=== PATIENT | female | born 1955 | race Caucasian/White ===

== ENCOUNTER 2018-06-29 14:19 | Observation (INO) ==
[2018-06-29] MEDS ORDERED: Morphine Inj 4 MG/ML Vial IV.PUSH ONE ×2 (14:30→15:54)
--- NOTE | 2018-06-29 14:36 | ED ---
HPI General Chief complaint: Fall Stated complaint: Fell off Horse Complaint Time Seen by Provider: 06/29/18 14:29 History of Present Illness HPI narrative: She endorses some nausea.62-year-old female who presents via EMS for evaluation after falling off a horse. She reports that prior to arrival she was riding her horse when the horse became spooked and she fell off , landing on her back and then hitting her head. She was helmeted at the time. There was reportedly a loss of consciousness while she was being transported which she feels is secondary to pain. She is complaining primarily right now of right lower back and buttocks pain, severe, constant, aggravated by movement of the hip. She received fentanyl via EMS. She is currently denying any headache, neck pain, chest pain or shortness of breath, abdominal pain, numbness or tingling or weakness in extremities. She reports baby aspirin use every other day. She is not on any other blood thinning medications. She has no other complaints at this time Related Data Home Medications Medication Instructions Recorded Confirmed aspirin [Aspirin Low Dose] 81 mg PO DAILY 06/29/18 06/29/18 Allergies Allergy/AdvReac Type Severity Reaction Status Date / Time latex Allergy Rash Verified 06/29/18 14:32 Sulfa (Sulfonamide Allergy allergy Verified 06/29/18 14:32 Antibiotics) Review of Systems ROS: all other systems reviewed are negative [facility] Medical History Medical History GERD (gastroesophageal reflux disease) (Acute) H/O: hysterectomy (Acute) Surgical History Surgical History Hx of tonsillectomy (Acute) Social History Social History Substance History: No History of Abuse Second Hand Smoke Exposure: No Smoking Status: Never smoker How Often Do You Have a Drink Containing Alcohol: 2 to 4 times a month Recent Travel in [facility] within the Last 8 Weeks: No Recent Out of Country Travel within the Last 8 Weeks: No Exam Narrative Exam Narrative: GENERAL: Well-developed well-nourished female who appears uncomfortable on initial examination. Her vital signs been reviewed. Cervical collar in place laying on backboard. The patient was logrolled off of the backboard using spinal precautions. SKIN: Warm and dry. Large amount of ecchymosis noted to the right lower back and buttocks region with associated tenderness to palpation. HEAD: Atraumatic. Normocephalic. EYES: Pupils equal and round. No scleral icterus. No injection or drainage. ENT: No nasal bleeding or discharge. Mucous membranes pink and moist. NECK: Trachea midline. No JVD. CARDIOVASCULAR: Regular rate and rhythm. No murmur appreciated. RESPIRATORY: No accessory muscle use. Clear to auscultation. Breath sounds equal bilaterally. GASTROINTESTINAL: Abdomen soft, non-tender, nondistended. Hepatic and splenic margins not palpable. MUSCULOSKELETAL: Patient is holding her right leg in flexion and internal rotation of the right hip region. There is pain with attempts of range of motion. There is tenderness to palpation to the right buttocks, lower back and lateral hip region. There is no crepitus. There is no tenderness to palpation along the cervical thoracic or lumbar midline spine. Distal pulses and sensation are preserved in the upper and lower extremities. NEUROLOGICAL: Awake and alert. No obvious cranial nerve deficits. Motor grossly within normal limits. Normal speech. Course Initial Documented Vital Signs Temperature 98.1 F 06/29/18 14:24 Pulse Rate 87 06/29/18 14:24 Respiratory Rate 20 06/29/18 14:24 Blood Pressure 155/65 H 06/29/18 14:24 Pulse Oximetry 100 06/29/18 14:24 Last Documented Vital Signs Temperature 98.1 F 06/29/18 14:24 Pulse Rate 52 L 06/29/18 15:39 Respiratory Rate 20 06/29/18 14:24 Blood Pressure 149/63 H 06/29/18 15:39 Pulse Oximetry 99 06/29/18 15:39 Medical Decision Making MDM Narrative Medical decision making narrative: The patient was placed on ECG monitoring pulse oximetry. IV morphine, Zofran administered. Lab work obtained. Plan is for CT imaging the brain, cervical, thoracic and lumbar, lumbar spine, thorax, abdomen and pelvis, chest x-ray and pelvis x-ray ordered. CT imaging reveals a large right-sided superficial gluteal/lumbar hematoma. Imaging is otherwise negative for acute process. The cervical collar was removed. Attempted to have the patient sit up in bed on the edge of the bed however she is unable to even do this, certainly unable to ambulate at this time. Therefore the patient will be admitted to the trauma service for intractable pain Medical Screen Exam Complete: Yes Emergency Medical Condition: Yes Differential Diagnosis Differential Diagnosis: Pelvic fracture, contusion, retroperitoneal hematoma, spinal fracture Lab Data Result diagrams: 06/29/18 14:33 06/29/18 14:33 Lab Results 06/29/18 06/29/18 06/29/18 Range/Units 14:33 14:33 14:33 WBC 17.0 H (4.0-11.0) th/mm3 RBC 4.23 (4.00-5.30) mil/mm3 Hgb 13.6 (11.6-15.3) gm/dL POC Hgb (Calc) 13.9 (11.6-15.3) g/dL Hct 38.6 (35.0-46.0) % POC Hct 41.0 (35-46.0) % MCV 91.3 (80.0-100.0) fL MCH 32.1 (27.0-34.0) pg MCHC 35.2 (32.0-36.0) % RDW 12.5 (11.6-17.2) % Plt Count 235 (150-450) th/mm3 MPV 8.7 (7.0-11.0) fL Neut % (Auto) 83.2 H (16.0-70.0) % Lymph % (Auto) 11.2 (9.0-44.0) % [place] % (Auto) 5.3 (0.0-8.0) % Eos % (Auto) 0.1 (0.0-4.0) % Baso % (Auto) 0.2 (0.0-2.0) % Neut # (Auto) 14.2 H (1.8-7.7) th/mm3 Lymph # (Auto) 1.9 (1.0-4.8) th/mm3 [place] # (Auto) 0.9 (0.0-0.9) th/mm3 Eos # (Auto) 0.0 (0.0-0.4) th/mm3 Baso # (Auto) 0.0 (0.0-0.2) th/mm3 WBC Differential . Differential Comment Auto diff final PT 10.5 (9.8-11.6) sec INR 1.0 Ratio APTT 22.2 L (23.4-31.7) sec POC Sodium 140 (137-144) mmol/L Sodium (136-145) meq/L POC Potassium 4.0 (3.6-5.0) mmol/L Potassium (3.5-5.1) meq/L POC Chloride 101 L (102-111) mmol/L Chloride (98-107) meq/L Carbon Dioxide (21.0-32.0) meq/L Anion Gap (5-15) meq/L POC BUN 28 H (5-21) mg/dL BUN (7-18) mg/dL Creatinine (0.50-1.00) mg/dL POC Creatinine 0.7 (0.6-1.3) mg/dL Estimated GFR (>89) mL/min POC Glucose 135 H (68-110) mg/dL Random Glucose (74-106) mg/dL Calcium (8.5-10.1) mg/dL Total Bilirubin (0.2-1.0) mg/dL AST (15-37) U/L ALT (10-53) U/L Alkaline Phosphatase (45-117) U/L Total Protein (6.4-8.2) g/dL Albumin (3.4-5.0) g/dL Blood Type Blood Type Recheck Antibody Screen 06/29/18 06/29/18 Range/Units 14:33 14:33 WBC (4.0-11.0) th/mm3 RBC (4.00-5.30) mil/mm3 Hgb (11.6-15.3) gm/dL POC Hgb (Calc) (11.6-15.3) g/dL Hct (35.0-46.0) % POC Hct (35-46.0) % MCV (80.0-100.0) fL MCH (27.0-34.0) pg MCHC (32.0-36.0) % RDW (11.6-17.2) % Plt Count (150-450) th/mm3 MPV (7.0-11.0) fL Neut % (Auto) (16.0-70.0) % Lymph % (Auto) (9.0-44.0) % [place] % (Auto) (0.0-8.0) % Eos % (Auto) (0.0-4.0) % Baso % (Auto) (0.0-2.0) % Neut # (Auto) (1.8-7.7) th/mm3 Lymph # (Auto) (1.0-4.8) th/mm3 [place] # (Auto) (0.0-0.9) th/mm3 Eos # (Auto) (0.0-0.4) th/mm3 Baso # (Auto) (0.0-0.2) th/mm3 WBC Differential Differential Comment PT (9.8-11.6) sec INR Ratio APTT (23.4-31.7) sec POC Sodium (137-144) mmol/L Sodium 140 (136-145) meq/L POC Potassium (3.6-5.0) mmol/L Potassium 4.0 (3.5-5.1) meq/L POC Chloride (102-111) mmol/L Chloride 106 (98-107) meq/L Carbon Dioxide 22.9 (21.0-32.0) meq/L Anion Gap 11 (5-15) meq/L POC BUN (5-21) mg/dL BUN 29 H (7-18) mg/dL Creatinine 0.87 (0.50-1.00) mg/dL POC Creatinine (0.6-1.3) mg/dL Estimated GFR 66 L (>89) mL/min POC Glucose (68-110) mg/dL Random Glucose 133 H (74-106) mg/dL Calcium 9.5 (8.5-10.1) mg/dL Total Bilirubin 0.4 (0.2-1.0) mg/dL AST 28 (15-37) U/L ALT 37 (10-53) U/L Alkaline Phosphatase 78 (45-117) U/L Total Protein 7.2 (6.4-8.2) g/dL Albumin 4.1 (3.4-5.0) g/dL Blood Type A Negative Blood Type Recheck Required Antibody Screen Negative Imaging Data Radiologist's impression: Abdomen/Pelvis CT 06/29/18 14:29 CONCLUSION: 1. Large superficial right gluteal/lumbar hematoma. 2. Trace free fluid in the dependent portion of the pelvis. 3. No other acute findings identified in the abdomen and pelvis. Chest X-Ray 06/29/18 14:29 CONCLUSION: Faint ill-defined opacity right upper lung zone. May be artifactual. Recommend follow-up PA and lateral views for further evaluation. No other acute cardiopulmonary disease identified. Pelvis X-Ray 06/29/18 14:29 CONCLUSION: No evidence of fracture. Cervical Spine CT 06/29/18 14:30 CONCLUSION: 1. No evidence of fracture. 2. Multilevel degenerative findings. Chest CT 06/29/18 14:30 CONCLUSION: No acute findings in the chest. Head CT 06/29/18 14:30 CONCLUSION: No acute intracranial findings. . Lumbar Spine CT 06/29/18 14:30 CONCLUSION: 1. Degenerative findings of lumbar spine. 2. No evidence of fracture. 3. Right-sided superficial lumbar/gluteal hematoma described on CT abdomen and pelvis report. Thoracic Spine CT 06/29/18 14:30 CONCLUSION: 1. No evidence fracture. 2. Central canal diameter within normal limits at all levels. Discharge Plan Discharge Disposition Patient Disposition: 30 Still Patient Discharge Condition Condition: Stable Discharge Details Diagnosis: Traumatic hematoma, Intractable back pain Physicians Team ED Provider: Alvin Crawford ED Midlevel Provider: Sony Sheffield Primary Care Provider: David Adorno Rxs /Orders / Referrals /Forms Prescriptions: No Action aspirin [Aspirin Low Dose] 81 mg Tablet,Delayed Release (Dr/Ec) 81 mg PO DAILY RF: 0 Discharge Interventions Interventions: Vital Signs Last Done: 06/29/18 15:39 Status ED Status: With Doctor
[2018-06-29 14:45] LABS: Baso % (Auto) 0.2 % (0.0-2.0); Eos % (Auto) 0.1 % (0.0-4.0); Hematocrit 38.6 % (35.0-46.0); Hemoglobin 13.6 gm/dL (11.6-15.3); Lymph # (Auto) 1.9 th/mm3 (1.0-4.8); Lymph % (Auto) 11.2 % (9.0-44.0); Mean Corpuscular HGB Conc 35.2 % (32.0-36.0); Mean Corpuscular Hemoglobin 32.1 pg (27.0-34.0); Mean Corpuscular Volume 91.3 fL (80.0-100.0); Mean Platelet Volume 8.7 fL (7.0-11.0); Mono # (Auto) 0.9 th/mm3 (0.0-0.9); Mono % (Auto) 5.3 % (0.0-8.0); Neut # (Auto) 14.2 th/mm3 (1.8-7.7); Neut % (Auto) 83.2 % (16.0-70.0); Platelet Count 235 th/mm3 (150-450); Red Blood Count 4.23 mil/mm3 (4.00-5.30); Red Cell Distribution Width 12.5 % (11.6-17.2)
[2018-06-29 14:56] LABS: Activated Partial Thrombo Time 22.2 sec (23.4-31.7); Prothrombin Time 10.5 sec (9.8-11.6)
[2018-06-29 15:02] LABS: Alanine Aminotransferase 37 U/L (10-53); Albumin 4.1 g/dL (3.4-5.0); Anion Gap 11 meq/L (5-15); Aspartate Aminotransferase 28 U/L (15-37); Blood Urea Nitrogen 29 mg/dL (7-18); Calcium 9.5 mg/dL (8.5-10.1); Carbon Dioxide 22.9 meq/L (21.0-32.0); Chloride 106 meq/L (98-107); Glomerular Filtration Rate 66 mL/min (>89); Glucose,Random 133 mg/dL (74-106); Sodium 140 meq/L (136-145)
[2018-06-29 15:04] LABS: Alkaline Phosphatase 78 U/L (45-117); Total Protein 7.2 g/dL (6.4-8.2)
--- NOTE | 2018-06-29 15:05 | XR ---
EXAM DATE: 06/29/2018 2:56 PM EDT AGE/SEX: 62 years / Female INDICATIONS: Patient fell off of horse today. CLINICAL DATA: This is the patient's initial encounter. Patient reports that signs and symptoms have been present for 1 day and indicates a pain score of 7/10. MEDICAL/SURGICAL HISTORY: None. None. COMPARISON: No prior exams available for comparison. FINDINGS: Single AP view of the chest. There is pain ill-defined opacity in the right upper lung zone. Lungs ot herwise clear. No evidence of pleural effusion or thorax. Cardiomediastinal silhouette within normal limits. CONCLUSION: Faint ill-defined opacity right upper lung zone. May be artifactual. Recommend follow-up PA and later al views for further evaluation. No other acute cardiopulmonary disease identified. Electronically signed by: Dheeraj Doe MD 06/29/2018 3:04 PM EDT
--- NOTE | 2018-06-29 15:06 | XR ---
EXAM DATE: 06/29/2018 2:56 PM EDT AGE/SEX: 62 years / Female INDICATIONS: Pelvic and right hip pain, patient fell off of horse today. CLINICAL DATA: This is the patient's initial encounter. Patient reports that signs and symptoms have been present for 1 day and indicates a pain score of 10/10. MEDICAL/SURGICAL HISTORY: None. None. COMPARISON: No prior exams available for comparison. FINDINGS: 2 views of the pelvis. Bone alignment within normal limits. No evidence of fracture. No evidence of j oint narrowing. CONCLUSION: No evidence of fracture. Electronically signed by: Dheeraj Doe MD 06/29/2018 3:05 PM EDT
--- NOTE | 2018-06-29 15:24 | CT ---
EXAM DATE: 06/29/2018 3:07 PM EDT AGE/SEX: 62 years / Female INDICATIONS: Fell off of horse. Pain. CLINICAL DATA: This is the patient's initial encounter. Patient reports that signs and symptoms have been present for 1 day and indicates a pain score of 8/10. MEDICAL/SURGICAL HISTORY: Gastroesophageal reflux disease. Hysterectomy. Tonsillectomy. RADIATION DOSE: 53.20 CTDI (mGy) COMPARISON: . TECHNIQUE: CT of the head without contrast. Using automated exposure control and adjustment of the mA and/or kV according to patient size, radiation dose was kept as low as reasonably achievable to ob tain optimal diagnostic quality images. DICOM format image data is available electronically for revi ew and comparison. FINDINGS: Cerebrum: The ventricles are normal for age. No evidence of midline shift, mass lesion, hemorrhage or acute infarction. No extraaxial fluid collections are seen. Posterior Fossa: The cerebellum and brainstem are intact. The 4th ventricle is midline. The cerebe llopontine angle is unremarkable. Extracranial: The visualized portion of the orbits is intact. Skull: The calvaria is intact. No evidence of skull fracture. CONCLUSION: No acute intracranial findings. . Electronically signed by: Dheeraj Doe MD 06/29/2018 3:22 PM EDT
--- NOTE | 2018-06-29 15:29 | CT ---
EXAM DATE: 06/29/2018 3:22 PM EDT AGE/SEX: 62 years / Female INDICATIONS: Fell off of horse. Right flank hematoma. CLINICAL DATA: This is the patient's initial encounter. Patient reports that signs and symptoms have been present for 1 day and indicates a pain score of 10/10. MEDICAL/SURGICAL HISTORY: Gastroesophageal reflux disease. Hysterectomy. Tonsillectomy. ORAL CONTRAST: No oral contrast ingested. RADIATION DOSE: 9.18 CTDI (mGy) ; Combined studies COMPARISON: No prior exams available for comparison. TECHNIQUE: Multiple contiguous axial images were obtained through the abdomen and pelvis following b olus infusion of 95 ml Omnipaque 350 (iohexol) nonionic water-soluble contrast as a cumulative dose for multiple exams. No oral contrast ingested. Using automated exposure control and adjustment of t he mA and/or kV according to patient size, radiation dose was kept as low as reasonably achievable to obtain optimal diagnostic quality images. DICOM format image data is available electronically for r eview and comparison. FINDINGS: Lower Lungs: The visualized lower lungs are clear. Liver: The liver has a homogeneous density without space-occupying lesion. There is no dilation of th e biliary tree. Spleen: Homogeneous density without enlargement. Pancreas: Unremarkable without mass or calcification. Kidneys: Normal in size and shape. No evidence of mass or hydronephrosis. Adrenal Glands: Unremarkable. Aorta: The aorta and proximal iliac vessels are grossly unremarkable without aneurysmal dilation. Bowel/Mesentery: No evidence of bowel dilatation. No focal bowel wall thickening identified. There i s trace free fluid in the pelvis. No free air identified. Abdominal Wall: Anterior abdominal wall is intact. There is a large right sided subcutaneous soft ti ssue gluteal/lumbar hematoma measuring 13.9 x 4.4 cm in axial dimensions. Adjacent soft tissue edema. Retroperitoneum: No evidence of adenopathy in the retrocrural, para-aortic, or deep pelvic regions. Bladder: Contours are smooth. Reproductive Organs: No abnormal masses or calcifications seen. Inguinal: The inguinal region is unremarkable without evidence of adenopathy. Bony Structures: No evidence of fracture. CONCLUSION: 1. Large superficial right gluteal/lumbar hematoma. 2. Trace free fluid in the dependent portion of the pelvis. 3. No other acute findings identified in the abdomen and pelvis. Electronically signed by: Dheeraj Doe MD 06/29/2018 3:27 PM EDT
--- NOTE | 2018-06-29 15:32 | CT ---
EXAM DATE: 06/29/2018 3:18 PM EDT AGE/SEX: 62 years / Female INDICATIONS: Fell off of horse. Pain. CLINICAL DATA: This is the patient's initial encounter. Patient reports that signs and symptoms have been present for 1 day and indicates a pain score of 10/10. MEDICAL/SURGICAL HISTORY: Gastroesophageal reflux disease. Hysterectomy. Tonsillectomy. RADIATION DOSE: 15.44 CTDI (mGy) COMPARISON: No prior exams available for comparison. TECHNIQUE: Contiguous axial images were obtained using helical multirow detector technique. The vol umetric data was post-processed with multiplanar reconstruction in oblique axial, sagittal, and coron al planes. Using automated exposure control and adjustment of the mA and/or kV according to patient s ize, radiation dose was kept as low as reasonably achievable to obtain optimal diagnostic quality paula ges. DICOM format image data is available electronically for review and comparison. FINDINGS: Vertebrae: Normal vertebral body height. No evidence of fracture. Alignment: Normal. No subluxation. C2-3: Broad-based disc osteophyte complex and bilateral facet arthrosis. Central canal diameter with in normal limits. Neural foraminal diameters within normal limits. C3-4: Bilateral facet arthrosis. Central canal diameter within normal limits. Neural foraminal diame ters within normal limits. C4-5: Right greater than left facet arthrosis and broad-based disc osteophyte complex. Central canal diameter within normal limits. Neural foraminal diameters within normal limits. C5-6: Broad-based disc osteophyte complex and bilateral facet arthrosis. Mild right neural foraminal narrowing. Central canal diameter within normal limits. C6-7: Bilateral facet arthrosis. Central canal diameter within normal limits. Neural foraminal diame ters within normal limits. C7-T1: Bilateral facet arthrosis. Central canal diameter within normal limits. Neural foraminal diam eters within normal limits. CONCLUSION: 1. No evidence of fracture. 2. Multilevel degenerative findings. Electronically signed by: Dheeraj Doe MD 06/29/2018 3:30 PM EDT
--- NOTE | 2018-06-29 15:45 | CT ---
EXAM DATE: 06/29/2018 3:24 PM EDT AGE/SEX: 62 years / Female INDICATIONS: Fell off of horse. Right flank hematoma. CLINICAL DATA: This is the patient's initial encounter. Patient reports that signs and symptoms have been present for 1 day and indicates a pain score of 10/10. MEDICAL/SURGICAL HISTORY: Gastroesophageal reflux disease. Hysterectomy. Tonsillectomy. RADIATION DOSE: 9.18 CTDI (mGy) COMPARISON: No prior exams available for comparison. TECHNIQUE: Multiple contiguous axial images were obtained through the chest during bolus infusion of 95 ml Omnipaque 350 (iohexol) nonionic water-soluble contrast as a cumulative dose for multiple exa ms. Images were obtained in suspended respiration using multiple row detector helical technique. U sing automated exposure control and adjustment of the mA and/or kV according to patient size, radiati on dose was kept as low as reasonably achievable to obtain optimal diagnostic quality images. DICOM format image data is available electronically for review and comparison. FINDINGS: Lungs: The lungs are symmetrically aerated. No infiltrates or nodular densities are seen. Mediastinum: There is good visualization of the great vessels of the middle mediastinum. No evidenc e of mediastinal or hilar adenopathy/mass. Pleurae: No evidence of focal thickening or pleural effusion. Axillae: Unremarkable. Bony Structures: Unremarkable. Miscellaneous: Abdomen described on abdomen CT report. CONCLUSION: No acute findings in the chest. Electronically signed by: Dheeraj Doe MD 06/29/2018 3:44 PM EDT
--- NOTE | 2018-06-29 15:48 | CT ---
EXAM DATE: 06/29/2018 3:40 PM EDT AGE/SEX: 62 years / Female INDICATIONS: Fell off of horse. Right flank hematoma. CLINICAL DATA: This is the patient's initial encounter. Patient reports that signs and symptoms have been present for 1 day and indicates a pain score of 10/10. MEDICAL/SURGICAL HISTORY: Gastroesophageal reflux disease. Hysterectomy. Tonsillectomy. RADIATION DOSE: . CTDI (mGy) ; Reconstructed from previous dataset, no dose COMPARISON: No prior exams available for comparison. TECHNIQUE: Contiguous axial images were acquired with a multirow detector CT scanner after intraveno us administration of 95 ml Omnipaque 350 (iohexol) nonionic water-soluble contrast as a cumulative d ose for multiple exams. Multiplanar reconstructions in the sagittal and coronal plane were also perf ormed. Using automated exposure control and adjustment of the mA and/or kV according to patient size, radiation dose was kept as low as reasonably achievable to obtain optimal diagnostic quality images. DICOM format image data is available electronically for review and comparison. FINDINGS: Vertebrae: Transitional vertebral body will be labeled S1. No evidence of fracture. Alignment within normal limits. T12-L1: The thecal sac has a normal diameter. No evidence of disc bulge or protrusion. The neural foramina are patent bilaterally. L1-L2: The thecal sac has a normal diameter. No evidence of disc bulge or protrusion. The neural f oramina are patent bilaterally. L2-L3: The thecal sac has a normal diameter. No evidence of disc bulge or protrusion. The neural f oramina are patent bilaterally. L3-L4: The thecal sac has a normal diameter. No evidence of disc bulge or protrusion. The neural f oramina are patent bilaterally. L4-L5: Broad-based disc bulge and bilateral facet arthrosis. Mild bilateral neural foraminal narrowi ng. Mild central canal narrowing. L5-S1: Broad-based disc bulge left greater than right. Bilateral facet arthrosis. Mild left neural f oraminal narrowing. Central canal diameter within normal limits. CONCLUSION: 1. Degenerative findings of lumbar spine. 2. No evidence of fracture. 3. Right-sided superficial lumbar/gluteal hematoma described on CT abdomen and pelvis report. Electronically signed by: Dheeraj Doe MD 06/29/2018 3:46 PM EDT
--- NOTE | 2018-06-29 15:50 | CT ---
EXAM DATE: 06/29/2018 3:34 PM EDT AGE/SEX: 62 years / Female INDICATIONS: Fell off of horse. Right flank hematoma. CLINICAL DATA: This is the patient's initial encounter. Patient reports that signs and symptoms have been present for 1 day and indicates a pain score of 10/10. MEDICAL/SURGICAL HISTORY: Gastroesophageal reflux disease. Hysterectomy. Tonsillectomy. RADIATION DOSE: . CTDI (mGy) ; Reconstructed from previous dataset, no dose COMPARISON: No prior exams available for comparison. TECHNIQUE: Contiguous axial images were acquired using a multirow detector CT scanner after intraven ous administration of 95 ml Omnipaque 350 (iohexol) nonionic water-soluble contrast as a cumulative dose for multiple exams. Multiplanar reconstruction in the sagittal and coronal planes was performe d. Using automated exposure control and adjustment of the mA and/or kV according to patient size, ra diation dose was kept as low as reasonably achievable to obtain optimal diagnostic quality images. D ICOM format image data is available electronically for review and comparison. FINDINGS: Vertebrae: Normal vertebral body height. Alignment: Normal. No subluxation. Post Contrast: No abnormal areas of enhancement are seen in the cord, dural or paraspinal regions. T1 - T2: Normal. T2 - T3: The thecal sac has a normal diameter. No evidence of disc bulge or protrusion. T3 - T4: The thecal sac has a normal diameter. No evidence of disc bulge or protrusion. T4 - T5: The thecal sac has a normal diameter. No evidence of disc bulge or protrusion. T5 - T6: The thecal sac has a normal diameter. No evidence of disc bulge or protrusion. T6 - T7: The thecal sac has a normal diameter. No evidence of disc bulge or protrusion. T7 - T8: The thecal sac has a normal diameter. No evidence of disc bulge or protrusion. T8 - T9: The thecal sac has a normal diameter. No evidence of disc bulge or protrusion. T9 - T10: The thecal sac has a normal diameter. No evidence of disc bulge or protrusion. T10 - T11: The thecal sac has a normal diameter. No evidence of disc bulge or protrusion. T11 - T12: The thecal sac has a normal diameter. No evidence of disc bulge or protrusion. T12 - L1: The thecal sac has a normal diameter. No evidence of disc bulge or protrusion. CONCLUSION: 1. No evidence fracture. 2. Central canal diameter within normal limits at all levels. Electronically signed by: Dheeraj Doe MD 06/29/2018 3:49 PM EDT
[2018-06-29] MEDS ORDERED: Naloxone Inj 0.4 MG/ML Vial IV.PUSH PRN (18:09)
[2018-06-29] MEDS ORDERED: Post-op Orders (for Pharmacy) OTHER ONE (18:09)
[2018-06-29] MEDS ORDERED: Bisacodyl 10 MG Supp RECTAL PRN (18:09)
[2018-06-29] MEDS ORDERED: Sod Chloride 0.9% Inj 1,000 ML IV.CONT SCH (18:15)
[2018-06-29] MEDS: Senna/Docusate Sodium 8.6/50 MG Tablet PO SCH (20:07)
[2018-06-29] MEDS: Lidocaine 5% Patch T-DERMAL SCH (20:07)
[2018-06-29] MEDS: Famotidine 20 MG Tablet PO SCH (20:08)
[2018-06-30 05:43] VITALS: RESP 18
[2018-06-30] MEDS: Senna/Docusate Sodium 8.6/50 MG Tablet PO SCH (08:22)
[2018-06-30] MEDS: Lidocaine 5% Patch T-DERMAL SCH (08:22)
[2018-06-30] MEDS: Famotidine 20 MG Tablet PO SCH (08:22)
[2018-06-30] MEDS ORDERED: Pantoprazole Sodium 20 MG DR Tablet PO SCH (09:00)
--- NOTE | 2018-06-30 11:05 | P.DCO ---
- Physical Therapy Order: Evaluate and treat, Improve ambulation, Strength and gait training - Home Health Nursing Order: Nursing assessment with vital signs - Case Management Consult Yes - Certification I have seen patient Hali Rocha on 06/30/18. My clinical findings support the need for the requested home health care services because: Deconditioned with increased weakness, High risk of falls I certify that my clinical findings support that this patient is homebound because: Unsteady gait/balance
[2018-06-30 12:20] VITALS: BP 122/71; PULSE 78; TEMP 98.2; O2SAT 97
--- NOTE | 2018-06-30 13:53 | MH ---
cc: Jessica Rosario MD DATE OF ADMISSION: 06/29/2018 ADMITTING PHYSICIAN: Jessica Rosario MD ADMITTING DIAGNOSES: Trauma, fall off a horse, with a large right gluteal hematoma. HISTORY OF PRESENT DISEASE: This 62-year-old lady who is otherwise very healthy was riding a horse when this one spooked, and the patient fell. The horse was about 14 hands tall. The patient was actually wearing a helmet. The patient was transferred to our emergency room, evaluated, found to have aggravated difficulty moving right hip. She underwent a full workup, was found to have a large gluteal subcutaneous hematoma. Hence, the consultation and admission. PAST MEDICAL HISTORY: GERD. SURGICAL HISTORY: Tonsillectomy and salpingo-oophorectomy. MEDICATIONS: None. SOCIAL HISTORY: The patient does not smoke. Drinks socially. PHYSICAL EXAMINATION: GENERAL: This is a pleasant 62-year-old lady in no acute distress. HEENT: Normocephalic. No trauma to the head. Pupils equal, reactive. Extraocular muscles intact. NECK: Supple. Bilateral carotid pulses. No signs of trauma to the head or neck. CHEST: Clear. Bilateral breath sounds. HEART: Regular. ABDOMEN: Soft. Active bowel sounds. No rebound, no guarding, no masses. PELVIS: Stable. EXTREMITIES: Within normal limits with good proximal and distal pulses. No vascular deficit. BACK: Examination of the lower back reveals a large right gluteal hematoma measuring about 10-12 cm with fluctuant blood and subcutaneous tissue. At this point, there is no puncture there or anything else, probably containing about 200 mL of blood. Rest of the back exam is normal. NEUROLOGIC: The patient is fully intact. IMPRESSION: Isolated gluteal subcutaneous hematoma. PLAN: At this point, the patient will be admitted for observation and pain control. She will be probably discharged within the next 24 hours. In the best case scenario, this is completely going to resolve, and the patient will not need any procedures. In a little worst case scenario, the blood will dehematanize and defibrinate, and then she will have a serosanguineous collection in subcutaneous tissue which can be aspirated. In the worst case scenario, this would congeal, and the patient will need surgical drainage and evacuation of hematoma in the future. Either way at this point, the patient does not need any procedure. She will be sent home on pain medication. She will follow up with my office in about 1-2 weeks, and we will see which way this goes. Clearly surgery is a last resort, and that is how it should remain. MD LING Martinez/dimitrios , 01:16 PM , 01:24 PM
--- NOTE | 2018-06-30 16:30 | P.DS ---
Date of admission: 06/29/18 16:25 Primary care physician: David Adorno Brief History from admission: S/P Fall DS: Diagnosis - Discharge Diagnosis (1) Traumatic hematoma Status: Acute (2) Intractable back pain Status: Acute DS: Medications - Discharge Medications Prescriptions: lidocaine [Lidoderm] 1 patch TRANSDERMAL DAILY #10 ea oxycodone-acetaminophen 1 tab PO Q4H PRN #14 tab PRN Reason: Pain Scale 3 To 5 DS: Summary Hospital Course: EMMONAK: Helmeted horse back rider that fell off landing on her back and striking her head. + LOC. INJURIES: RIGHT gluteal/lumbar hematoma PMHx: GERD, Gastric ulcer, Ostearthritis RIGHT gluteal/lumbar hematoma Supportive care Hgb stable Pain control Ice PRN Hold ASA F/U with Trauma office in 1 week to assess hematoma and determine if drainage is needed F/U with PCP in 1 week Plan of care discussed with patient at bedside. Collaborating Trauma surgeon agrees with plan. Case management consulted to assist with discharge planning. Patient is clear from trauma surgery standpoint to safely DC home. - Time Spent with Patient Total time spent providing and/or coordinating discharge services: Greater than 30 minutes - Quality: VTE Deep Vein Thrombosis/Pulmonary Embolism Present on Admission: No Exam Vital signs: Vital Signs 06/29/18 18:28 06/29/18 18:29 06/29/18 19:17 Temperature Pulse Rate 51 L Respiratory Rate 20 18 Blood Pressure 99/44 L Pulse Oximetry 100 96 06/29/18 20:00 06/29/18 21:46 06/30/18 00:00 Temperature 97.5 F L 98.4 F Pulse Rate 61 59 L 63 Respiratory Rate 18 17 Blood Pressure 124/58 L 115/51 L Pulse Oximetry 100 99 06/30/18 00:30 06/30/18 04:00 06/30/18 07:49 Temperature 97.9 F 97.6 F Pulse Rate 58 L 62 59 L Respiratory Rate 18 18 Blood Pressure 99/52 L 107/48 L Pulse Oximetry 100 95 06/30/18 08:05 06/30/18 12:00 Temperature 98.2 F Pulse Rate 78 Respiratory Rate 18 Blood Pressure 122/71 Pulse Oximetry 95 97 Intake & Output 06/29/18 06/30/18 06/30/18 19:59 06:59 18:59 Weight Other: # Voids Date of Last Bowel Movement 06/28/18 Weight On Admission Narrative: GENERAL: 62 year old well developed female lying in bed. SKIN: Warm and dry. RIGHT gluteal/lumbar hematoma, painful to palpation. CARDIOVASCULAR: Regular rate and rhythm. RESPIRATORY: Lungs clear to auscultation bilaterally. GASTROINTESTINAL: Abdomen soft, non-tender, nondistended. + BS. MUSCULOSKELETAL: Extremities without cyanosis or edema. MAEW, + perfused NEUROLOGICAL: Alert and calm. Speech clear. Results Procedures completed during hospitalization: . - Impressions ITS Impressions Abdomen/Pelvis CT 06/29/18 14:29 CONCLUSION: 1. Large superficial right gluteal/lumbar hematoma. 2. Trace free fluid in the dependent portion of the pelvis. 3. No other acute findings identified in the abdomen and pelvis. Chest X-Ray 06/29/18 14:29 CONCLUSION: Faint ill-defined opacity right upper lung zone. May be artifactual. Recommend follow-up PA and lateral views for further evaluation. No other acute cardiopulmonary disease identified. Pelvis X-Ray 06/29/18 14:29 CONCLUSION: No evidence of fracture. Cervical Spine CT 06/29/18 14:30 CONCLUSION: 1. No evidence of fracture. 2. Multilevel degenerative findings. Chest CT 06/29/18 14:30 CONCLUSION: No acute findings in the chest. Head CT 06/29/18 14:30 CONCLUSION: No acute intracranial findings. . Lumbar Spine CT 06/29/18 14:30 CONCLUSION: 1. Degenerative findings of lumbar spine. 2. No evidence of fracture. 3. Right-sided superficial lumbar/gluteal hematoma described on CT abdomen and pelvis report. Thoracic Spine CT 06/29/18 14:30 CONCLUSION: 1. No evidence fracture. 2. Central canal diameter within normal limits at all levels. Discharge Plan - Discharge Disposition Patient Disposition: Disch W/Home Health Service - Discharge Condition Condition: Stable - Discharge Order Discharge Orders: Discharge Order (Routine); Ordered 06/30/18 Ordered By: Velasquez Iverson - Physicians Team Primary Care Provider: David Adorno Attending Provider: Jessica Rosario Other Providers: Rnoni Morris MD ; Matt Thompson MD ; [facility] ; John Rodriguez MD ; Yovana Viveros ARNP ; Landen Benites MD ; Gloria Reyes MD ; Velasquez Iverson ARNP ; Jessica Rosario MD
== END 2018-06-30 13:00 | disposition home health service (06) ==
LOC: NEPE 14:19 → NEDA 16:25 → INTOOBSV 16:25 → OBSVTOIN 16:25 → N06 19:26
PROVIDERS: ADMIT Surgery; ATTEND Surgery